=== PATIENT | female | born 1995 | race Caucasian/White ===

== ENCOUNTER 2019-02-14 15:13 | Emergency (ER) | payer SELFPAY ==
[2019-02-14 15:22] VITALS: BP 128/79; PULSE 83; RESP 20; TEMP 36.8; O2SAT 100; BMI 27.4
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
--- NOTE | 2019-02-14 15:37 | DI.RAD.S_ITS ---
PROCEDURE: XR RIBS LT MIN 3V W CXR1V INDICATIONS: rib injury 1 week ago TECHNIQUE: 2 views of the left ribs were acquired, along with a single view chest. COMPARISON: None. FINDINGS: Surgical changes and devices: None. Bones and chest wall: No fractures or dislocations. No suspicious bony lesions. Overlying soft tissues appear unremarkable. Lungs and pleura: No pleural effusions or pneumothorax. Lungs appear clear. Mediastinum: Mediastinal contours appear normal. Heart size is normal. IMPRESSION: No displaced rib fractures are seen. Dictated by: Cecilio Nicholson M.D. on 02/14/2019 at 14:58 Approved by: Cecilio Nicholson M.D. on 02/14/2019 at 14:59
[2019-02-14 16:53] VITALS: BP 122/61; PULSE 84; RESP 15; O2SAT 100
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
== END 2019-02-14 17:29 | disposition home or self-care (01) ==
PROVIDERS: Emergency Provider Emergency Medicine
DX: S20.219A Contusion of unspecified front wall of thorax, initial encounter (principal); S70.10XA Contusion of unspecified thigh, initial encounter; S32.2XXA Fracture of coccyx, initial encounter for closed fracture; R07.9 Chest pain, unspecified; W19.XXXA Unspecified fall, initial encounter
CPT/HCPCS: 71101; 93005; 99283; 99284